=== PATIENT | female | born 1935 | race Hispanic/Latino ===

== ENCOUNTER → 2019-02-20 | Outpatient (CLI) | payer OTHER | END | disposition home or self-care (01) | LOC: SHCH 08:57 | PROVIDERS: ATTEND Internal Medicine Cardiovascular Disease | DX: I11.9 Hypertensive heart disease without heart failure (principal); I35.0 Nonrheumatic aortic (valve) stenosis | CPT/HCPCS: 93306 ==

== ENCOUNTER → 2019-02-27 | Outpatient (CLI) | payer OTHER | END | disposition home or self-care (01) | LOC: SHCH 09:21 | PROVIDERS: ATTEND Internal Medicine Cardiovascular Disease | DX: I65.23 Occlusion and stenosis of bilateral carotid arteries (principal) | CPT/HCPCS: 93880; 93925 ==

== ENCOUNTER → 2019-02-28 | Outpatient (CLI) | payer OTHER ==
[~2019-02-28] VITALS: Ht 154.9 cm; Wt 54.9 kg
[~2019-02-28] MED LIST: REGADENOSON 0.4 MG/5 ML PF SYG IVP SCH
== END | disposition home or self-care (01) ==
LOC: SHCH 08:01
PROVIDERS: ATTEND Internal Medicine Cardiovascular Disease
DX: I25.89 Other forms of chronic ischemic heart disease (principal); I10 Essential (primary) hypertension
CPT/HCPCS: 78452; 93017; 96374; A9500 ×2; J2785

== ENCOUNTER 2019-03-19 06:53 | Day surgery (SDC) | payer OTHER ==
[2019-03-17 10:15] VITALS: BP 179/57
[2019-03-17 10:18] LABS: BASOPHILS % (AUTO) 0.4 % (0.0-5.0); EOSINOPHILS % (AUTO) 3.3 % (0.0-8.0); HEMATOCRIT 34.1 % (36-48); LYMPHOCYTES % (AUTO) 23.7 % (21.0-51.0); MEAN CORPUSCULAR HEMOGLOBIN 32.3 pg (27.0-33.0); MEAN CORPUSCULAR HGB CONC 34.5 g/dL (32.0-36.0); MEAN CORPUSCULAR VOLUME 93.7 fL (79-99); MONOCYTES % (AUTO) 9.4 % (3.0-13.0); NEUTROPHILS % (AUTO) 63.2 % (40.0-77.0); PLATELET COUNT (AUTO) 193 K/uL (130-400); RED BLOOD CELL COUNT(AUTO) 3.64 MIL/uL (4.00-5.50); RED CELL DISTRIBUTION WIDTH 13.4 % (11.0-15.5)
[2019-03-17 10:24] LABS: CREATININE 1.1 mg/dL (0.5-1.5); POTASSIUM 3.8 mmol/L (3.5-5.1)
[2019-03-17 10:26] LABS: INR 0.99 (0.85-1.15); PARTIAL THROMBOPLASTIN TIME 23.9 SEC (26.3-35.5); PROTHROMBIN TIME 10.4 SEC (9.6-11.6)
[2019-03-17 11:19] LABS: APPEARANCE,URINE Clear (CLEAR); BILIRUBIN,URINE Negative (NEGATIVE); COLOR,URINE Yellow (YELLOW); GLUCOSE, URINE (UA) Negative (NEGATIVE); KETONES,URINE Negative (NEGATIVE); LEUKOCYTE ESTERASE ,URINE Negative (NEGATIVE); NITRATE,URINE Negative (NEGATIVE); OCCULT BLOOD,URINE Negative (NEGATIVE); PROTEIN,URINE POS 1+ mg/dL (NEGATIVE); UROBILINOGEN,URINE 0.2 mg/dL (0.2-1.0)
[2019-03-17 11:40] LABS: BACTERIA,URINE Rare /HPF (None Seen); RBC,URINE 0-1 /HPF (0-1); SQUAMOUS EPITHELIAL CELL,UR Rare /HPF (0-2); WBC,URINE 0-1 /HPF (0-1)
[2019-03-19] VITALS (10 sets, daily range): BP systolic 148–195; BP diastolic 59–80
[~2019-03-19] VITALS: Ht 154.9 cm; Wt 54.7 kg
[~2019-03-19 06:53] MED LIST changes: +ASPI-555 PO; +CALC-1106 PO; +FELO10TA31 PO; +FOLI0.8C PO; +LOSA1TAB42 PO; +METO100T14 PO; -REGADENOSON 0.4 MG/5 ML PF SYG IVP SCH; +SERT100T12 PO; +SIMV-46 PO; +SITA50TA PO; +SODIUM CHLORIDE 0.9% 500ML 500 ML IV SCH; +VITAMIN B12 PO
[2019-03-19] MEDS ORDERED: IOHEXOL-350 50ML VIAL IV ONE ×2 (09:29→10:27)
[2019-03-19] MEDS ORDERED: HEPARIN SODIUM 1000UNIT/ML 10ML VIAL ONE (09:29)
[2019-03-19] MEDS ORDERED: LIDOCAINE HCL 2% 20ML ONE (09:29)
[2019-03-19] MEDS ORDERED: IOHEXOL 350 MG/ML 100ML INFUS..BTL IV ONE (09:33)
[2019-03-19] MEDS ORDERED: LABETALOL HCL 5 MG/ML 20ML VIAL IV ONE (10:11)
[2019-03-19] MEDS ORDERED: NITROGLYCERIN 4.1 GM SPRAY TL ONE (10:16)
[2019-03-19] MEDS ORDERED: DEXTROSE 50%-WATER 50 ML DISP.SYRIN IV PRN (11:15)
[2019-03-19] MEDS ORDERED: GLUCAGON 1MG KIT 1 MG ML IM PRN (11:15)
[2019-03-19] MEDS ORDERED: PHARMACY COMMUNICATION MISC SCH (11:15)
[2019-03-19] MEDS ORDERED: INSULIN HUMULIN R 100 UNIT/ML 3ML SQ SCH (11:30)
[2019-03-19] MEDS ORDERED: LOSARTAN 50 MG TABLET PO ONE (11:30)
[2019-03-19] MEDS ORDERED: HYDRALAZINE HCL 20 MG/ML VIAL ONE (13:53)
[2019-03-19] MEDS ORDERED: HYDRALAZINE HCL 20 MG/ML VIAL IV ONE (15:00)
[2019-03-20 16:30] VITALS: BP 179/59
--- NOTE | 2019-03-20 18:23 | NUR ---
1720 PT AAOX3, NO C/O OF PAIN TO RT GROIN, NO ACTIVE BLEEDING OR HEMATOMA. PT STABLE, POST CARE INSTRUCTION GIVEN TO PT AND FAMILY, BOTH VERBALIZED UNDERSTANDING. PT DRESSED, IV D/C, PT TAKEN OUT IN WHEEL CHAIR, DRIVEN HOME BY FAMILY.
== END 2019-03-19 17:20 | disposition home or self-care (01) ==
LOC: DAH 06:53
PROVIDERS: ATTEND Internal Medicine Cardiovascular Disease
DX: I25.119 Atherosclerotic heart disease of native coronary artery with unspecified angina pectoris (principal); I70.1 Atherosclerosis of renal artery; I70.213 Atherosclerosis of native arteries of extremities with intermittent claudication, bilateral legs; I11.9 Hypertensive heart disease without heart failure; E11.9 Type 2 diabetes mellitus without complications; E78.5 Hyperlipidemia, unspecified; Z79.4 Long term (current) use of insulin; Z79.82 Long term (current) use of aspirin; Z79.899 Other long term (current) drug therapy; Z98.890 Other specified postprocedural states; Z82.49 Family history of ischemic heart disease and other diseases of the circulatory system; Z83.3 Family history of diabetes mellitus
CPT/HCPCS: 36245; 36415; 71045; 75625; 75716; 80048; 81001; 82948; 85025; 85610; 85730; 93005; 93458; A4215; A4216; A4221; A4222; A4223 ×3; A4606; A4663; C1760; C1769; C1887; C1894; J0360; J1644 ×3; J3490 ×2; Q9965; Q9967 ×3; 75630

== ENCOUNTER 2019-04-21 05:45 | Day surgery (SDC) | payer OTHER ==
[2019-04-17 10:30] LABS: BASOPHILS % (AUTO) 0.5 % (0.0-5.0); EOSINOPHILS % (AUTO) 3.3 % (0.0-8.0); HEMATOCRIT 34.7 % (36-48); LYMPHOCYTES % (AUTO) 18.8 % (21.0-51.0); MEAN CORPUSCULAR HEMOGLOBIN 30.9 pg (27.0-33.0); MEAN CORPUSCULAR HGB CONC 33.1 g/dL (32.0-36.0); MEAN CORPUSCULAR VOLUME 93.3 fL (79-99); MONOCYTES % (AUTO) 11.6 % (3.0-13.0); NEUTROPHILS % (AUTO) 65.5 % (40.0-77.0); PLATELET COUNT (AUTO) 207 K/uL (130-400); RED BLOOD CELL COUNT(AUTO) 3.72 MIL/uL (4.00-5.50); RED CELL DISTRIBUTION WIDTH 13.2 % (11.0-15.5); WHITE BLOOD COUNT (AUTO) 6.3 K/uL (4.8-10.8)
[2019-04-17 10:31] LABS: APPEARANCE,URINE Clear (CLEAR); BILIRUBIN,URINE Negative (NEGATIVE); COLOR,URINE Yellow (YELLOW); GLUCOSE, URINE (UA) Negative (NEGATIVE); KETONES,URINE Negative (NEGATIVE); LEUKOCYTE ESTERASE ,URINE Negative (NEGATIVE); NITRATE,URINE Negative (NEGATIVE); OCCULT BLOOD,URINE Negative (NEGATIVE); PH,URINE 6.5 (5.0-8.0); PROTEIN,URINE POS 1+ mg/dL (NEGATIVE); UROBILINOGEN,URINE 0.2 mg/dL (0.2-1.0)
[2019-04-17 10:38] LABS: CREATININE 1.1 mg/dL (0.5-1.5); POTASSIUM 3.9 mmol/L (3.5-5.1)
[2019-04-17 10:40] LABS: INR 0.98 (0.85-1.15); PARTIAL THROMBOPLASTIN TIME 23.8 SEC (26.3-35.5); PROTHROMBIN TIME 10.3 SEC (9.6-11.6)
[2019-04-17 10:51] VITALS: BP 140/70
[2019-04-17 11:02] LABS: BACTERIA,URINE Rare /HPF (None Seen); RBC,URINE None Seen /HPF (0-1); WBC,URINE 0-1 /HPF (0-1)
[~2019-04-21] VITALS: Ht 154.9 cm; Wt 54.8 kg
[2019-04-21] VITALS (9 sets, daily range): BP systolic 150–192; BP diastolic 45–77
[~2019-04-21 05:45] MED LIST changes: -FELO10TA31 PO; +FELO10TA46 PO; +ISOS30TA6 PO; +OLME20TA22 PO; -SODIUM CHLORIDE 0.9% 500ML 500 ML IV SCH
[2019-04-21] MEDS ORDERED: SODIUM CHLORIDE 0.9% 1000ML 1,000 ML IV ONE (06:24)
[2019-04-21] MEDS ORDERED: LIDOCAINE HCL 1% 20 ML VIAL ONE (07:31)
[2019-04-21] MEDS ORDERED: NITROGLYCERIN 5 MG/ML 10 ML VIAL IV ONE (07:31)
[2019-04-21] MEDS ORDERED: IODIXANOL 320 MG/ML 100 ML VIAL ONE (07:31)
[2019-04-21] MEDS ORDERED: HEPARIN SODIUM 1000UNIT/ML 10ML VIAL ONE (07:31)
[2019-04-21] MEDS ORDERED: FENTANYL CITRATE PF 50 MCG/1 ML 2ML VIAL ONE (07:32)
[2019-04-21] MEDS ORDERED: MIDAZOLAM HCL 1 MG/ML 2ML VIAL ONE (07:32)
[2019-04-21] MEDS ORDERED: NITROGLYCERIN 4.1 GM SPRAY TL ONE (09:36)
--- NOTE | 2019-04-21 09:52 | NUR ---
POST-PROCEDURE RECEIVED TO DAY 14 VIA BED BY SANDRO MARAVILLA RN. CONNECTED TO CONTINUOUS CARDIOPULMONARY MONITORING. D-STAT DRESSING TO LEFT GROIN W/O SIGNS OF BLEEDING;DSG CD&I, SITE SOFT, NON-TENDER. 4X4 DRESSING TO RIGHT GROIN CD&I, SITE SOFT, NON-TENDER. EDUCATED PT TO KEEP LEFT LEG STRAIGHT AND HEAD FLAT. PT VERBALIZED UNDERSTANDING. SIDE RAILS UP X2, BED IN LOWEST POSITION, AND CALL LIGHT W/IN REACH.
--- NOTE | 2019-04-21 12:20 | NUR ---
HTN B/P 192/77. DR. GREEN NOTIFIED OF ELEVATED B/P. ORDER RECEIVED FOR HYDRALAZINE 20MG IV X1. WILL CONTINUE TO MONITOR.
[2019-04-21] MEDS ORDERED: HYDRALAZINE HCL 20 MG/ML VIAL ONE (12:21)
--- NOTE | 2019-04-21 12:42 | NUR ---
F/U B/P B/P 148/44 (78).
--- NOTE | 2019-04-21 13:25 | NUR ---
DISCHARGE EDUCATION DAY PT DISCHARGE INSTRUCTION SHEET, MED REC, AND PT SUMMARY REVIEWED WITH PT AND DAUGHTER. PT EDUCATED TO KEEP DRESSINGS TO BILATERAL GROIN CLEAN, DRY, AND INTACT FOR 24 HOURS. AFTER 24 HOURS REMOVE AND LEAVE OPEN TO AIR. PT EDUCATED HOW TO CHECK CATH SITE FOR BLEEDING AND INSTRUCTED FOR ANY SIGNS OF BLEEDING HAVE SOMEONE PUT DIRECT PRESSURE AND CALL 911. INFORMED PT THAT SOMEONE FROM DR. GREEN OFFICE WILL CONTACT HER FOR INFORMATION ON WHEN TO RETURN FOR RADIAL APPROACH RT LOWER EXTREMITY ANGIOGRAM. PT VERBALIZED UNDERSTANDING. OPPORTUNITY GIVEN TO ASK QUESTIONS. QUESTIONS ADDRESSED.
--- NOTE | 2019-04-21 13:30 | NUR ---
ACTIVITY ASSISTED TO CHAIR. PT C/O OF SOME DIZZINESS THAT IMPROVED WITH SITTING UP FOR A SHORT TIME. HR 63, B/P 157/43.
--- NOTE | 2019-04-21 14:04 | NUR ---
DISCHARGE DISCHARGED VIA W/C IN NO ACUTE DISTRESS. DENIES DIZZINESS.
== END 2019-04-21 14:04 | disposition home or self-care (01) ==
LOC: DAH 05:45
PROVIDERS: ATTEND Internal Medicine Cardiovascular Disease
DX: I70.213 Atherosclerosis of native arteries of extremities with intermittent claudication, bilateral legs (principal); Z79.82 Long term (current) use of aspirin; Z79.899 Other long term (current) drug therapy; Z82.49 Family history of ischemic heart disease and other diseases of the circulatory system; Z83.3 Family history of diabetes mellitus
CPT/HCPCS: 36200; 36415; 71045; 75625; 80048; 81001; 82948 ×2; 85025; 85610; 85730; 93005; A4215; A4216; A4221; A4222; A4223 ×3; A4606; A4663; C1769 ×2; C1894 ×4; J0360; J1644 ×2; J2250; J3010; J3490; J7030; Q9967; 75716; 99156; 99157

== ENCOUNTER 2019-04-25 05:41 | Day surgery (SDC) | payer OTHER ==
[2019-04-23 10:39] LABS: BASOPHILS % (AUTO) 0.4 % (0.0-5.0); EOSINOPHILS % (AUTO) 3.1 % (0.0-8.0); HEMATOCRIT 33.1 % (36-48); LYMPHOCYTES % (AUTO) 18.1 % (21.0-51.0); MEAN CORPUSCULAR HEMOGLOBIN 31.1 pg (27.0-33.0); MEAN CORPUSCULAR HGB CONC 32.9 g/dL (32.0-36.0); MEAN CORPUSCULAR VOLUME 94.3 fL (79-99); MONOCYTES % (AUTO) 11.3 % (3.0-13.0); NEUTROPHILS % (AUTO) 66.5 % (40.0-77.0); PLATELET COUNT (AUTO) 215 K/uL (130-400); RED BLOOD CELL COUNT(AUTO) 3.51 MIL/uL (4.00-5.50); RED CELL DISTRIBUTION WIDTH 13.3 % (11.0-15.5)
[2019-04-23 10:44] LABS: APPEARANCE,URINE Clear (CLEAR); BILIRUBIN,URINE Negative (NEGATIVE); COLOR,URINE Yellow (YELLOW); GLUCOSE, URINE (UA) Negative (NEGATIVE); KETONES,URINE Negative (NEGATIVE); LEUKOCYTE ESTERASE ,URINE Negative (NEGATIVE); NITRATE,URINE Negative (NEGATIVE); OCCULT BLOOD,URINE Negative (NEGATIVE); PH,URINE 7.5 (5.0-8.0); PROTEIN,URINE POS 1+ mg/dL (NEGATIVE); UROBILINOGEN,URINE 0.2 mg/dL (0.2-1.0)
[2019-04-23 10:52] VITALS: BP 149/66
[2019-04-23 10:55] LABS: CREATININE 1.2 mg/dL (0.5-1.5); POTASSIUM 4.4 mmol/L (3.5-5.1)
[2019-04-23 11:02] LABS: BACTERIA,URINE Rare /HPF (None Seen); RBC,URINE 0-1 /HPF (0-1); SQUAMOUS EPITHELIAL CELL,UR Rare /HPF (0-2)
[2019-04-23 11:32] LABS: INR 0.99 (0.85-1.15); PARTIAL THROMBOPLASTIN TIME 23.5 SEC (26.3-35.5); PROTHROMBIN TIME 10.4 SEC (9.6-11.6)
--- NOTE | 2019-04-24 10:24 | NUR ---
ABNORMAL LABS RBC 3.51, H/H 10.9/33.[address] GREEN. NO FURTHER ORDERS GIVEN, MAY PROCEED WITH PLANNED PROCEDURE.
[2019-04-25] VITALS (14 sets, daily range): BP systolic 122–152; BP diastolic 44–76
[~2019-04-25] VITALS: Ht 154.9 cm; Wt 54.0 kg
[2019-04-25] MEDS: SODIUM CHLORIDE 0.9% 1000ML 1,000 ML IV ONE (06:21)
[2019-04-25] MEDS ORDERED: IODIXANOL 320 MG/ML 100 ML VIAL ONE (07:43)
[2019-04-25] MEDS ORDERED: HEPARIN SODIUM 1000UNIT/ML 10ML VIAL ONE (07:43)
[2019-04-25] MEDS ORDERED: NITROGLYCERIN 5 MG/ML 10 ML VIAL IV ONE (07:43)
[2019-04-25] MEDS ORDERED: MIDAZOLAM HCL 1 MG/ML 2ML VIAL ONE ×2 (07:43→10:18)
[2019-04-25] MEDS ORDERED: LIDOCAINE HCL 2% 20ML ONE (07:44)
[2019-04-25] MEDS ORDERED: FENTANYL CITRATE PF 50 MCG/1 ML 2ML VIAL ONE (07:44)
[2019-04-25] MEDS ORDERED: NICARDIPINE HCL 25 MG/10 ML ML IV ONE (07:45)
--- NOTE | 2019-04-25 07:50 | NUR ---
PESTICIDE APPLICATOR PATIENT TAKEN TO PESTICIDE APPLICATOR FOR SCHEDULE PROCEDURE, FAMILY AT BEDSIDE
[2019-04-25] MEDS ORDERED: PHENYLEPHRINE HCL 10 MG/ML 1ML VIAL IV ONE (08:42)
[2019-04-25] MEDS ORDERED: CLOPIDOGREL BISULFATE 300 MG TAB ONE (09:35)
[2019-04-25] MEDS ORDERED: HYDRALAZINE HCL 20 MG/ML VIAL ONE ×2 (09:42→09:50)
--- NOTE | 2019-04-25 11:05 | NUR ---
POST RECEIVED PT BACK FROM POURER OFF S/P PERIPHERAL ANGIOGRAM VIA RIGHT RADIAL APPROACH TR BAND X 2 TO RIGHT RADIAL. BRUISING AND DRY OLD BLOOD AROUND SITE. NO ACTIVE OOZING OR BLEEDING. PT AWAKE AND ALERT IN BED,NO DISTRESS NOTED. VS STABLE. PLAN OF CARE DISCUSS WITH PATIENT / DAUGHTERS . CALL LIGHT WITHIN REACH, PT VOIDED ON ARRIVAL.
--- NOTE | 2019-04-25 12:00 | NUR ---
TR BAND RIGHT WRIST TR BAND 1ST BAND PLACED HAD 18 ML AIR REMOVED 2ML NOW 16 ML 2ND BAND HAS 10 ML AIR REMOVED 2 ML OF AIR NOW 8 ML. NO ACTIVE BLEEDING OR OZZING TO SITE
--- NOTE | 2019-04-25 12:20 | NUR ---
TR BAND 1ST TRBAND REMOVED 2ML AIR NOW 14 2ND TRBAND REMOVED 2ML OF AIR NOW 6ML
--- NOTE | 2019-04-25 13:17 | NUR ---
TRBAND 1ST BAND REMOVED 2ML OF AIR NOW 12ML 2ND BAND REMOVED 2ML OF AIR NOW 4ML NO BLEEDING OR HEMATOMA TO SITE
--- NOTE | 2019-04-25 13:45 | NUR ---
TR BAND 1ST BAND REMOVED 2 ML OF AIR NOW 10 ML 2ND BAND REMOVED 2ML OF AIR NOW 2ML SITE DR. GREEN ASSESS SITE , HE SPOKE TO PATIENTS FAMILY ABOUT PROCEDURE OUTCOME
--- NOTE | 2019-04-25 14:05 | NUR ---
TRBAND 1ST BAND REMOVE 2ML OF AIR NOW 8 ML 2ND BAND REMOVE 2 ML , ALL AIR REMOVED. NO BLEEDING TO SITE BRUSING NOTED TO RIGHT WRIST
--- NOTE | 2019-04-25 14:20 | NUR ---
dc dc instructions and rx given to patients daughter, instructed on new med regimen new rx, to continue home meds and f/u with dr. alfaro. pt/ pts daughter voiced understanding.
--- NOTE | 2019-04-25 14:20 | NUR ---
TRBAND 1ST BAND REMOVED 2ML OF AIR NOW 6ML - NO BLEEDING OR OZZING, BRUSING TO SITE DR. GREEN AWARE
--- NOTE | 2019-04-25 14:35 | NUR ---
trband removed 2ml of air from trband now 4ml,no bleeding to site. same bruising to site
--- NOTE | 2019-04-25 14:50 | NUR ---
trband removed 2ml of air to trband to right wrist now 2ml left of air
--- NOTE | 2019-04-25 15:05 | NUR ---
tr band removed 2ml of air,no air left on trband, no bleeding noted. sterile dressing applied to site. after dressing applied noted hematoma developing around puncture site , immediately applied manual pressure , pulse oximeter to right hand 02 sat 99% on finger, pt finger tips warm pt able to wiggle fingers. hematoma noted to increase to right hand . Dr. Escalante notified by Oscar LEPE.orders received to reapply tr band, trband reapplied 12ml of air to site. no bleeding to site . will continue to monitor. Waiting for DR. Escalante to come assess the site. REport Given to Oscar LEPE to resume care of patient. right arm elevated above heart level.
--- NOTE | 2019-04-25 15:30 | NUR ---
assess dr. alfaro in room assess right radial site , orders received to apply 2nd trband , 15ml of air applied to site , arm elevated higher abover heart level. to restart trband protocol removal and call him if hematoma worsens. REport given to Oscar segura
--- NOTE | 2019-04-25 17:40 | NUR ---
REPORT TO SHERLEY MCKEE
--- NOTE | 2019-04-25 18:45 | NUR ---
AT BEDSIDE, ASSESSED PATIENT RIGHT WRIST AND HAND. DR. GREEN STATED PATIENT CAN GO HOME TODAY. NO ACTIVE BLEEDING TO SITE. PULSES PRESENT CAPILLARY REFILL LESSTHAN 3 SEC, PATIENT ABLE TO FEEL TOUCH, WILL CONTINUE TO MONITOR.
--- NOTE | 2019-04-25 21:00 | NUR ---
PATIENT DISCHARGED HOME, BRUISING TO SITE NOTED, NO ACTIVE BLEEDING, NO HEMATOMA NOTED, DR. GREEN AWARE OF BRUISING TO SITE. PATIENT AND DAUGHTER INFORMED IN THE EVENT OF BLEEDING TO APPLY FIRM PRESSURE. RETURN TO THE NEAREST EMERGENCY ROOM. BOTH VERBALIZED UNDERSTANDING. PATIENT DISCHARGED HOME STABLE.
== END 2019-04-25 21:00 | disposition home or self-care (01) ==
LOC: DAH 05:41
PROVIDERS: ATTEND Internal Medicine Cardiovascular Disease
DX: E11.51 Type 2 diabetes mellitus with diabetic peripheral angiopathy without gangrene (principal); I10 Essential (primary) hypertension; E78.5 Hyperlipidemia, unspecified; I25.10 Atherosclerotic heart disease of native coronary artery without angina pectoris; Z90.710 Acquired absence of both cervix and uterus; Z79.82 Long term (current) use of aspirin; Z79.899 Other long term (current) drug therapy; Z98.890 Other specified postprocedural states; Z79.01 Long term (current) use of anticoagulants
CPT/HCPCS: 36246; 36415; 71045; 75710; 80048; 81001; 82948 ×3; 85025; 85610; 85730; 93005; A4215; A4216; A4221; A4222; A4223 ×3; A4606; A4663; C1769 ×4; C1887; C1894 ×2; J0360 ×2; J1644 ×3; J2250 ×2; J2370; J3010; J3490 ×3; J7030; Q9967; 99156; 99157

== ENCOUNTER 2021-04-22 09:06 | Day surgery (SDC) | payer OTHER ==
[2021-04-20 11:20] LABS: BASOPHILS % (AUTO) 0.6 % (0.0-5.0); EOSINOPHILS % (AUTO) 2.2 % (0.0-8.0); HEMATOCRIT 30.9 % (36-48); LYMPHOCYTES % (AUTO) 19.7 % (21.0-51.0); MEAN CORPUSCULAR HEMOGLOBIN 31.3 pg (27.0-33.0); MONOCYTES % (AUTO) 8.2 % (3.0-13.0); NEUTROPHILS % (AUTO) 68.8 % (40.0-77.0); PLATELET COUNT (AUTO) 189 K/uL (130-400); RED BLOOD CELL COUNT(AUTO) 3.36 MIL/uL (4.00-5.50); RED CELL DISTRIBUTION WIDTH 13.3 % (11.0-15.5); WHITE BLOOD COUNT (AUTO) 8.5 K/uL (4.8-10.8)
[2021-04-20 11:21] LABS: APPEARANCE,URINE Clear (CLEAR); BILIRUBIN,URINE Negative (NEGATIVE); COLOR,URINE Yellow (YELLOW); GLUCOSE, URINE (UA) Negative (NEGATIVE); KETONES,URINE Negative (NEGATIVE); LEUKOCYTE ESTERASE ,URINE Negative (NEGATIVE); NITRATE,URINE Negative (NEGATIVE); OCCULT BLOOD,URINE Negative (NEGATIVE); PH,URINE 5.5 (5.0-8.0); PROTEIN,URINE POS 1+ mg/dL (NEGATIVE); UROBILINOGEN,URINE 0.2 mg/dL (0.2-1.0)
[2021-04-20 11:28] LABS: CREATININE 1.2 mg/dL (0.5-1.5)
[2021-04-20 12:22] LABS: PROTHROMBIN TIME 10.9 SEC (9.6-11.6)
[2021-04-20 12:23] LABS: PARTIAL THROMBOPLASTIN TIME 26.4 SEC (26.3-35.5)
[2021-04-20 12:58] LABS: BACTERIA,URINE Rare /HPF (None Seen); RBC,URINE None Seen /HPF (0-1)
[2021-04-22] VITALS (11 sets, daily range): BP systolic 97–179; BP diastolic 41–63
[~2021-04-22] VITALS: Ht 152.4 cm; Wt 58.2 kg
[~2021-04-22 09:06] MED LIST changes: +AMLO-258 PO; +ASPI-1443 PO; -ASPI-555 PO; -CALC-1106 PO; +CHOL200013 PO; +CILO100T PO; -FELO10TA46 PO; -FOLI0.8C PO; -ISOS30TA6 PO; +ISOS30TA92 PO; -OLME20TA22 PO; +SERT-440 PO; -SERT100T12 PO; -VITAMIN B12 PO; +calcium PO; +folic acid PO; +vitamin b12 PO
[2021-04-22] MEDS ORDERED: 0.9%NACL 1000ML 1,000 ML IV ONE (10:44)
[2021-04-22] MEDS ORDERED: FELO10TA46 PO (11:11)
[2021-04-22] MEDS ORDERED: MIDAZOLAM HCL 1 MG/ML 2ML VIAL ONE ×2 (11:26→14:04)
[2021-04-22] MEDS ORDERED: IODIXANOL 320 MG/ML 100 ML VIAL ONE ×2 (11:26→11:27)
[2021-04-22] MEDS ORDERED: HEPARIN 10,000 UNIT/10ML (1,000 UNIT/ML) VIAL ONE (11:26)
[2021-04-22] MEDS ORDERED: FENTANYL CITRATE PF 50 MCG/1 ML 2ML VIAL ONE ×2 (11:26→14:04)
[2021-04-22] MEDS ORDERED: NITROGLYCERIN 50MG VIAL IV ONE (11:26)
[2021-04-22] MEDS ORDERED: LIDOCAINE HCL 400MG/20ML VIAL ONE (11:27)
[2021-04-22] MEDS ORDERED: HYDRALAZINE 20MG/ML VIAL ONE ×2 (12:14→14:02)
[2021-04-22] MEDS ORDERED: CLOPIDOGREL 300MG TAB ONE (12:46)
[2021-07-06] MEDS ORDERED: CYAN-52 PO (13:52)
[2021-07-06] MEDS ORDERED: SITA50TA PO (13:52)
[2021-07-06] MEDS ORDERED: FOLI0.8T3 PO (13:52)
== END 2021-04-22 19:00 | disposition home or self-care (01) ==
LOC: DAH 09:06
PROVIDERS: ATTEND Internal Medicine Cardiovascular Disease
DX: E11.51 Type 2 diabetes mellitus with diabetic peripheral angiopathy without gangrene (principal); I73.9 Peripheral vascular disease, unspecified; I25.10 Atherosclerotic heart disease of native coronary artery without angina pectoris; E78.5 Hyperlipidemia, unspecified; I10 Essential (primary) hypertension; Z90.710 Acquired absence of both cervix and uterus; Z79.4 Long term (current) use of insulin; Z79.01 Long term (current) use of anticoagulants; Z79.899 Other long term (current) drug therapy; Z96.653 Presence of artificial knee joint, bilateral; Z98.890 Other specified postprocedural states
CPT/HCPCS: 36415 ×2; 37224; 71045; 75710; 80048; 81001; 82948 ×2; 85025; 85347 ×2; 85610; 85730; 93005; A4215; A4216; A4221; A4222; A4223 ×3; A4520; A4554; A4606; A4663; A6402; C1725; C1760; C1769 ×3; C1887; C1893; C1894 ×3; J0360 ×2; J1644 ×3; J2250 ×2; J3010 ×2; J3490 ×2; J7030; Q9967; 75716; 99156; 99157

== ENCOUNTER 2021-07-07 07:18 | Observation (INO) | payer OTHER ==
[2021-07-05 09:26] LABS: BASOPHILS % (AUTO) 0.4 % (0.0-5.0); EOSINOPHILS % (AUTO) 2.5 % (0.0-8.0); LYMPHOCYTES % (AUTO) 14.4 % (21.0-51.0); MEAN CORPUSCULAR HEMOGLOBIN 30.1 pg (27.0-33.0); MEAN CORPUSCULAR HGB CONC 32.4 g/dL (32.0-36.0); MEAN CORPUSCULAR VOLUME 93.2 fL (79-99); MONOCYTES % (AUTO) 9.2 % (3.0-13.0); NEUTROPHILS % (AUTO) 72.7 % (40.0-77.0); PLATELET COUNT (AUTO) 200 K/uL (130-400); RED BLOOD CELL COUNT(AUTO) 3.65 MIL/uL (4.00-5.50); RED CELL DISTRIBUTION WIDTH 13.2 % (11.0-15.5); WHITE BLOOD COUNT (AUTO) 8.4 K/uL (4.8-10.8)
[2021-07-05 09:27] LABS: APPEARANCE,URINE CLEAR (CLEAR); BILIRUBIN,URINE NEGATIVE (NEGATIVE); COLOR,URINE YELLOW (YELLOW); GLUCOSE, URINE (UA) NEGATIVE (NEGATIVE); KETONES,URINE NEGATIVE (NEGATIVE); LEUKOCYTE ESTERASE ,URINE NEGATIVE (NEGATIVE); NITRATE,URINE NEGATIVE (NEGATIVE); OCCULT BLOOD,URINE TRACE-INTACT (NEGATIVE); PROTEIN,URINE 100 mg/dL (NEGATIVE); UROBILINOGEN,URINE 0.2 mg/dL (0.2-1.0)
[2021-07-05 09:32] LABS: CREATININE 1.1 mg/dL (0.5-1.5); POTASSIUM 4.2 mmol/L (3.5-5.1)
[2021-07-05 09:34] LABS: BACTERIA,URINE Few /HPF (None Seen); HYALINE CASTS, URINE 0-1 /LPF (0-1 /LPF); RBC,URINE 0-1 /HPF (0-1)
[2021-07-05 09:34] LABS: INR 0.99 (0.85-1.15); PROTHROMBIN TIME 10.8 SEC (9.6-11.6)
[2021-07-05 09:35] LABS: PARTIAL THROMBOPLASTIN TIME 24.9 SEC (26.3-35.5)
[2021-07-07] VITALS (20 sets, daily range): BP systolic 123–180; BP diastolic 42–99
[~2021-07-07] VITALS: Ht 154.9 cm; Wt 58.2 kg
[~2021-07-07 07:18] MED LIST changes: -AMLO-258 PO; +CYAN-52 PO; +FELO10TA46 PO; +FOLI0.8T3 PO; -calcium PO; -folic acid PO; -vitamin b12 PO
[2021-07-07] MEDS ORDERED: 0.9%NACL 1000ML 1,000 ML IV ONE (07:41)
[2021-07-07] MEDS ORDERED: HEPARIN 10,000 UNIT/10ML (1,000 UNIT/ML) VIAL ONE (09:50)
[2021-07-07] MEDS ORDERED: NITROGLYCERIN 50MG VIAL ONE (09:50)
[2021-07-07] MEDS ORDERED: FENTANYL CITRATE PF 50 MCG/1 ML 2ML VIAL ONE (09:51)
[2021-07-07] MEDS ORDERED: IODIXANOL 320 MG/ML 100 ML VIAL ONE (09:51)
[2021-07-07] MEDS ORDERED: MIDAZOLAM HCL 1 MG/ML 2ML VIAL ONE ×2 (09:51→12:42)
[2021-07-07] MEDS ORDERED: LIDOCAINE HCL 1% MDV 50ML VIAL ONE (09:52)
[2021-07-07] MEDS ORDERED: LIDOCAINE HCL 400MG/20ML VIAL ONE (09:52)
[2021-07-07] MEDS ORDERED: HYDRALAZINE 20MG/ML VIAL ONE (10:35)
[2021-07-07] MEDS ORDERED: CLOPIDOGREL 300MG TAB ONE (10:45)
[2021-07-07] MEDS ORDERED: ASPIRIN 325MG EC TAB PO ONE (10:46)
[2021-07-07] MEDS ORDERED: 0.9%NACL 1000ML 1,000 ML IV SCH (14:00)
[2021-07-07] MEDS ORDERED: LABETALOL 20MG SYG IV ONE ×2 (17:17→18:00)
[2021-07-07] MEDS ORDERED: ACETAMINOPHEN WITH CODEINE 1 TAB TAB PO PRN (23:30)
[2021-07-07] MEDS ORDERED: ACETAMINOPHEN 325 MG TAB PO PRN (23:30)
[2021-07-07] MEDS ORDERED: GLUCAGON 1MG KIT 1 MG ML IM PRN (23:30)
[2021-07-07] MEDS ORDERED: GUAIFENESIN-DM 200/20 MG 10 ML PO PRN (23:30)
[2021-07-07] MEDS ORDERED: ONDANSETRON 4MG INJ IV PRN (23:30)
[2021-07-07] MEDS ORDERED: NITROGLYCERIN 0.4 MG SL TAB SL PRN (23:30)
[2021-07-07] MEDS ORDERED: DEXTROSE 50%-WATER 50 ML DISP.SYRIN IV PRN (23:30)
[2021-07-07] MEDS ORDERED: DIPHENHYDRAMINE HCL 25 MG CAPSULE PO PRN (23:30)
[2021-07-07] MEDS ORDERED: LACTULOSE 20 GM/30 ML UDCUP PO PRN (23:30)
[2021-07-07] MEDS ORDERED: MAG/ALUM/SIMETH 30 ML UDCUP PO PRN (23:30)
[2021-07-08] VITALS (17 sets, daily range): BP systolic 100–173; BP diastolic 33–117
[2021-07-08] MEDS ORDERED: INSULIN HUMULIN R 100 UNIT/ML 3ML SQ SCH (07:30)
[2021-07-08 08:58] LABS: MEAN CORPUSCULAR HEMOGLOBIN 31.5 pg (27.0-33.0); MEAN CORPUSCULAR HGB CONC 33.3 g/dL (32.0-36.0); MEAN CORPUSCULAR VOLUME 94.4 fL (79-99); RED BLOOD CELL COUNT(AUTO) 2.86 MIL/uL (4.00-5.50); RED CELL DISTRIBUTION WIDTH 13.6 % (11.0-15.5); WHITE BLOOD COUNT (AUTO) 12.8 K/uL (4.8-10.8)
[2021-07-08] MEDS ORDERED: CYANOCOBALAMIN (VITAMIN B-12) 1,000 MCG TABLET PO SCH (09:00)
[2021-07-08] MEDS ORDERED: ASPIRIN 81 MG EC TAB PO SCH (09:00)
[2021-07-08] MEDS ORDERED: HYDROCHLOROTHIAZIDE 25 MG TABLET PO SCH (09:00)
[2021-07-08] MEDS ORDERED: LOSARTAN 50 MG TABLET PO SCH (09:00)
[2021-07-08] MEDS ORDERED: FOLIC ACID 1 MG TABLET PO SCH (09:00)
[2021-07-08] MEDS ORDERED: **HM**(Cholecalciferol (Vitamin D3) (Vitamin D3) 50 MCG PO SCH (09:00)
[2021-07-08] MEDS ORDERED: METOPROLOL TARTRATE 50 MG TAB PO SCH (09:00)
[2021-07-08] MEDS ORDERED: NON-FORMULARY MEDICATION 1 EACH (Losartan/Hydrochlorothiazide (Losartan-Hctz 100-12.5 mg T PO ONE (09:00)
[2021-07-08] MEDS ORDERED: AMLODIPINE 5 MG TAB PO SCH (09:00)
[2021-07-08] MEDS ORDERED: LINAGLIPTIN 5 MG TABLET PO SCH (09:00)
[2021-07-08] MEDS ORDERED: ISOSORBIDE MONO 30MG SR TAB PO SCH (09:00)
[2021-07-08] MEDS ORDERED: CILOSTAZOL 100 MG TAB PO SCH (09:00)
[2021-07-08 09:11] LABS: CREATININE 1.1 mg/dL (0.5-1.5); POTASSIUM 4.1 mmol/L (3.5-5.1)
[2021-07-08] MEDS ORDERED: SERTRALINE HCL 50 MG TABLET PO SCH (21:00)
[2021-07-08] MEDS ORDERED: SIMVASTATIN 20 MG TABLET PO SCH (21:00)
== END 2021-07-08 09:55 | disposition home or self-care (01) ==
LOC: DAH 07:18 → 2BH 07:19 → 2DH 07-08 09:37
PROVIDERS: ADMIT Internal Medicine; ATTEND Internal Medicine
DX: I73.9 Peripheral vascular disease, unspecified (principal); E11.9 Type 2 diabetes mellitus without complications; I10 Essential (primary) hypertension; E78.5 Hyperlipidemia, unspecified; I25.10 Atherosclerotic heart disease of native coronary artery without angina pectoris; Z79.899 Other long term (current) drug therapy
CPT/HCPCS: 36415 ×2; 71045; 75716; 80048 ×2; 81001; 82948 ×2; 85025; 85027; 85610; 85730; 93005; 96374; A4215; A4216; A4221; A4222; A4223 ×3; A4606; A4663; C1724 ×2; C1725; C1727; C1760; C1769 ×4; C1887; C1893; C1894 ×3; C9766; C9772; G0378 ×11; J0360; J1644 ×3; J2250 ×2; J3010; J3490 ×3; J7030; Q9967; 99156; 99157

== ENCOUNTER 2021-08-15 06:37 | Day surgery (SDC) | payer OTHER ==
[2021-08-11 10:09] LABS: BASOPHILS % (AUTO) 0.6 % (0.0-5.0); EOSINOPHILS % (AUTO) 3.9 % (0.0-8.0); HEMATOCRIT 31.3 % (36-48); LYMPHOCYTES % (AUTO) 14.7 % (21.0-51.0); MEAN CORPUSCULAR HEMOGLOBIN 31.2 pg (27.0-33.0); MEAN CORPUSCULAR HGB CONC 32.6 g/dL (32.0-36.0); MEAN CORPUSCULAR VOLUME 95.7 fL (79-99); MONOCYTES % (AUTO) 8.9 % (3.0-13.0); NEUTROPHILS % (AUTO) 71.3 % (40.0-77.0); PLATELET COUNT (AUTO) 242 K/uL (130-400); RED BLOOD CELL COUNT(AUTO) 3.27 MIL/uL (4.00-5.50); RED CELL DISTRIBUTION WIDTH 13.6 % (11.0-15.5); WHITE BLOOD COUNT (AUTO) 8.8 K/uL (4.8-10.8)
[2021-08-11 10:12] LABS: APPEARANCE,URINE Cloudy (CLEAR); BILIRUBIN,URINE Negative (NEGATIVE); COLOR,URINE Yellow (YELLOW); GLUCOSE, URINE (UA) Negative (NEGATIVE); KETONES,URINE Negative (NEGATIVE); LEUKOCYTE ESTERASE ,URINE Small (NEGATIVE); NITRATE,URINE Negative (NEGATIVE); OCCULT BLOOD,URINE Negative (NEGATIVE); PROTEIN,URINE POS 2+ mg/dL (NEGATIVE); UROBILINOGEN,URINE 0.2 mg/dL (0.2-1.0)
[2021-08-11 10:23] LABS: CREATININE 1.3 mg/dL (0.5-1.5); POTASSIUM 4.4 mmol/L (3.5-5.1)
[2021-08-11 10:26] LABS: INR 0.99 (0.85-1.15); PROTHROMBIN TIME 10.8 SEC (9.6-11.6)
[2021-08-11 10:27] LABS: PARTIAL THROMBOPLASTIN TIME 24.2 SEC (26.3-35.5)
[2021-08-11 10:28] LABS: BACTERIA,URINE Rare /HPF (None Seen); RBC,URINE 0-1 /HPF (0-1)
[~2021-08-15] VITALS: Ht 154.9 cm; Wt 58.2 kg
[2021-08-15] VITALS (15 sets, daily range): BP systolic 128–205; BP diastolic 49–83
[2021-08-15] MEDS ORDERED: 0.9%NACL 1000ML 1,000 ML IV SCH ×2 (08:00→11:00)
[2021-08-15] MEDS ORDERED: HYDRALAZINE 20MG/ML VIAL ONE ×4 (10:29→16:26)
[2021-08-15] MEDS ORDERED: NITROGLYCERIN 50MG VIAL ONE (10:38)
[2021-08-15] MEDS ORDERED: NICARDIPINE 25MG INJ IV ONE (10:38)
[2021-08-15] MEDS ORDERED: IODIXANOL 320 MG/ML 100 ML VIAL ONE (10:38)
[2021-08-15] MEDS ORDERED: HEPARIN 10,000 UNIT/10ML (1,000 UNIT/ML) VIAL ONE (10:38)
[2021-08-15] MEDS ORDERED: LIDOCAINE HCL 400MG/20ML VIAL ONE (10:39)
[2021-08-15] MEDS ORDERED: FENTANYL CITRATE PF 50 MCG/1 ML 2ML VIAL ONE ×2 (10:39→13:42)
[2021-08-15] MEDS ORDERED: MIDAZOLAM HCL 1 MG/ML 2ML VIAL ONE ×2 (10:39→13:43)
[2021-08-15] MEDS ORDERED: DEXTROSE 50%-WATER 50 ML DISP.SYRIN IV PRN (11:00)
[2021-08-15] MEDS ORDERED: GLUCAGON 1MG KIT 1 MG ML IM PRN (11:00)
[2021-08-15] MEDS ORDERED: FENTANYL CITRATE PF 50 MCG/1 ML 2ML VIAL IVP ONE (14:00)
[2021-08-15] MEDS ORDERED: MIDAZOLAM HCL 1 MG/ML 2ML VIAL IVP ONE (14:00)
== END 2021-08-15 18:10 | disposition home or self-care (01) ==
LOC: DAH 06:37
PROVIDERS: ATTEND Internal Medicine Cardiovascular Disease
DX: I70.212 Atherosclerosis of native arteries of extremities with intermittent claudication, left leg (principal); E11.51 Type 2 diabetes mellitus with diabetic peripheral angiopathy without gangrene; I10 Essential (primary) hypertension; E78.5 Hyperlipidemia, unspecified; Z82.49 Family history of ischemic heart disease and other diseases of the circulatory system; Z98.890 Other specified postprocedural states; Z79.899 Other long term (current) drug therapy; Z90.710 Acquired absence of both cervix and uterus; Z79.01 Long term (current) use of anticoagulants
CPT/HCPCS: 36415 ×2; 71045; 75716; 80048; 81001; 82948 ×2; 85025; 85347; 85610; 85730; 93005; 96374; A4215; A4216; A4221; A4222; A4223 ×3; A4335; A4554; A4606; A4663; C1724; C1727; C1760; C1769 ×2; C1887; C1893; C1894 ×2; C9766; J0360 ×4; J1644 ×2; J2250 ×2; J3010 ×2; J3490 ×3; J7030 ×2; Q9967; 37225; 99156; 99157

== ENCOUNTER 2021-09-20 05:39 | Day surgery (SDC) | payer OTHER ==
[2021-09-16 08:13] VITALS: BP 134/62
[2021-09-16 09:33] LABS: BASOPHILS % (AUTO) 0.3 % (0.0-5.0); EOSINOPHILS % (AUTO) 5.2 % (0.0-8.0); HEMATOCRIT 30.7 % (36-48); LYMPHOCYTES % (AUTO) 18.5 % (21.0-51.0); MEAN CORPUSCULAR HEMOGLOBIN 30.1 pg (27.0-33.0); MEAN CORPUSCULAR HGB CONC 31.3 g/dL (32.0-36.0); MEAN CORPUSCULAR VOLUME 96.2 fL (79-99); MONOCYTES % (AUTO) 9.9 % (3.0-13.0); NEUTROPHILS % (AUTO) 65.3 % (40.0-77.0); PLATELET COUNT (AUTO) 238 K/uL (130-400); RED BLOOD CELL COUNT(AUTO) 3.19 MIL/uL (4.00-5.50); RED CELL DISTRIBUTION WIDTH 13.5 % (11.0-15.5); WHITE BLOOD COUNT (AUTO) 8.7 K/uL (4.8-10.8)
[2021-09-16 09:37] LABS: APPEARANCE,URINE Clear (CLEAR); BILIRUBIN,URINE Negative (NEGATIVE); COLOR,URINE Yellow (YELLOW); GLUCOSE, URINE (UA) Negative (NEGATIVE); KETONES,URINE Negative (NEGATIVE); LEUKOCYTE ESTERASE ,URINE Trace (NEGATIVE); NITRATE,URINE Negative (NEGATIVE); OCCULT BLOOD,URINE Negative (NEGATIVE); PH,URINE 5.5 (5.0-8.0); PROTEIN,URINE POS 2+ mg/dL (NEGATIVE); UROBILINOGEN,URINE 0.2 mg/dL (0.2-1.0)
[2021-09-16 09:45] LABS: CREATININE 1.2 mg/dL (0.5-1.5); POTASSIUM 5.4 mmol/L (3.5-5.1)
[2021-09-16 09:46] LABS: INR 0.94 (0.85-1.15); PROTHROMBIN TIME 10.3 SEC (9.6-11.6)
[2021-09-16 09:47] LABS: PARTIAL THROMBOPLASTIN TIME 24.2 SEC (26.3-35.5)
[2021-09-16 10:10] LABS: BACTERIA,URINE Rare /HPF (None Seen); RBC,URINE 0-1 /HPF (0-1); SQUAMOUS EPITHELIAL CELL,UR Rare /HPF (0-2)
[2021-09-20] VITALS (10 sets, daily range): BP systolic 110–162; BP diastolic 38–67
[~2021-09-20] VITALS: Ht 154.9 cm; Wt 59.4 kg
[~2021-09-20 05:39] MED LIST changes: +FERR-72 PO
[2021-09-20] MEDS ORDERED: 0.9% NACL 500ML IV.SOLN 500 ML IV SCH (06:00)
[2021-09-20] MEDS ORDERED: 0.9%NACL 1000ML 1,000 ML IV ONE (06:21)
[2021-09-20] MEDS ORDERED: LIDOCAINE HCL 1% 20 ML VIAL ONE (07:06)
[2021-09-20] MEDS ORDERED: MIDAZOLAM HCL 1 MG/ML 2ML VIAL ONE ×2 (07:06→09:19)
[2021-09-20] MEDS ORDERED: IODIXANOL 320 MG/ML 100 ML VIAL ONE (07:06)
[2021-09-20] MEDS ORDERED: HEPARIN 10,000 UNIT/10ML (1,000 UNIT/ML) VIAL ONE (07:06)
[2021-09-20] MEDS ORDERED: NITROGLYCERIN 50MG VIAL ONE (07:06)
[2021-09-20] MEDS ORDERED: FENTANYL CITRATE PF 50 MCG/1 ML 2ML VIAL ONE ×2 (07:06→09:58)
[2021-09-20] MEDS ORDERED: HYDRALAZINE 20MG/ML VIAL ONE ×2 (08:34→09:05)
[2021-09-20] MEDS ORDERED: CLOPIDOGREL 300MG TAB ONE (08:41)
[2021-09-20] MEDS ORDERED: NICARDIPINE 25MG INJ IV ONE (09:22)
[2021-09-20] MEDS ORDERED: DEXTROSE 50%-WATER 50 ML DISP.SYRIN IV PRN (10:30)
[2021-09-20] MEDS ORDERED: GLUCAGON 1MG KIT 1 MG ML IM PRN (10:30)
[2021-09-20] MEDS ORDERED: 0.9%NACL 1000ML 1,000 ML IV SCH (10:30)
[2021-09-20] MEDS ORDERED: ONDANSETRON 4MG INJ ONE (10:31)
== END 2021-09-20 15:50 | disposition home or self-care (01) ==
LOC: DAH 05:39
PROVIDERS: ATTEND Internal Medicine Cardiovascular Disease
DX: I70.212 Atherosclerosis of native arteries of extremities with intermittent claudication, left leg (principal); E11.51 Type 2 diabetes mellitus with diabetic peripheral angiopathy without gangrene; I10 Essential (primary) hypertension; I25.10 Atherosclerotic heart disease of native coronary artery without angina pectoris; E78.5 Hyperlipidemia, unspecified; I25.2 Old myocardial infarction; Z79.01 Long term (current) use of anticoagulants; Z79.899 Other long term (current) drug therapy; Z98.890 Other specified postprocedural states; Z95.5 Presence of coronary angioplasty implant and graft; Z90.710 Acquired absence of both cervix and uterus; Z79.82 Long term (current) use of aspirin; Z79.84 Long term (current) use of oral hypoglycemic drugs
CPT/HCPCS: 36415 ×2; 75716; 80048; 81001; 82948 ×2; 85025; 85347; 85610; 85730; 93005; A4215; A4221; A4222; A4223; A4663; C1724; C1727; C1760; C1769 ×5; C1887 ×2; C1893; C1894 ×3; C9766; J0360 ×2; J1644 ×3; J2250 ×2; J2405; J3010 ×2; J3490 ×2; J7030; Q9967; 75774; 99156; 99157